=== PATIENT | female | born 1960 | race Hispanic/Latino ===

== ENCOUNTER 2021-03-03 05:40 | Day surgery (SDC) | payer BC ==
[~2021-03-03] VITALS: Ht 167.6 cm; Wt 81.8 kg
[~2021-03-03 05:40] MED LIST: ESTRADIOL0.5 MG PO; LEVOTHYROXINE25 MC1 PO; OMEPRAZOLE20 M1 PO
[2021-03-03] MEDS ORDERED: CELECOXIB200 MG PO (08:00)
[2021-03-03] MEDS ORDERED: OXYCODONE HCL5 MG PO (08:01)
--- NOTE | 2021-03-06 07:15 | OR ---
[facility] [address], [place] [address] Signed DATE OF OPERATION: 03/03/2021 SURGEON: Robert Gonzales MD PREOPERATIVE DIAGNOSIS: Rotator cuff tear, left shoulder. POSTOPERATIVE DIAGNOSIS: Rotator cuff tear, left shoulder. PROCEDURE PERFORMED: Left shoulder arthroscopy with rotator cuff repair. SPOOL CARRIER: None. ANESTHESIA: General. BLOOD LOSS: Minimal. IMPLANTS: 4.75 SwiveLock x1. BRIEF HISTORY: Lisa is a 60-year-old female with progressive worsening of pain in her shoulder with some weakness. MRI was consistent with rotator cuff tear. Risks and benefits of operative treatment discussed with her and she elected to proceed. DESCRIPTION OF PROCEDURE: Once consent was obtained, she was taken to the operating room. After adequate anesthesia, she was placed in a beach chair position. All downside pressure points were well padded. The left shoulder was prepped and draped in a standard sterile fashion. The shoulder was injected with 0.25% Marcaine with epinephrine as was the subacromial space. Standard posterior portal was made and the scope was introduced in the shoulder. ARTHROSCOPIC FINDINGS: The glenohumeral surfaces were intact biceps. Biceps anchor and labrum were intact. There was moderate synovitis superior laterally as well as anteriorly. The Electronically Signed By: ROBERT GONZALES MD 03/06/21 0715 PATIENT NAME: LISA FARNSWORTH OPERATIVE REPORT DATE OF : 56 REPORT #: [id number] PHYSICIAN: ROBERT GONZALES MD PCP: GINA DUMONT REPORT IS CONFIDENTIAL AND NOT TO BE RELEASED WITHOUT AUTHORIZATION [facility] [address], [place] [address] Signed subscapularis was intact. There was a near full-thickness rotator cuff tear noted just posterior to the biceps that measured about 1 cm. Subacromial space showed marked thickening and bursitis. There was fair amount of injection of the rotator cuff tendon just posterior to the tear. The acromion was type 2 to type 3. DESCRIPTION OF OPERATION: Diagnostic arthroscopy was undertaken as noted above. The scope was then withdrawn, placed in subacromial space and lateral portal was established. The bursa was removed in total. An anterior acromioplasty was then undertaken. Once this was accomplished, the tear was debrided and inspected. It was felt to be a repairable tear. A FiberTape suture was then placed in inverted mattress configuration in the tear and using a 475 anchor, we reduced it to tuberosity after debriding the tuberosity down to bleeding bony surface. The SwiveLock was then deployed and screwed into position with excellent adhesion of the tendon to the bone. The shoulder was taken through range of motion and found to be good. The debris was then evacuated and the scope was withdrawn. Portals were closed with 3-0 nylon, dressed with Allevyn and OpSite. The patient was taken to the recovery room in satisfactory condition. All sponge, needle, and instrument counts were correct. Robert Gonzales MD BA/ERIK /[id number] Copies: ~ Electronically Signed By: ROBERT GONZALES MD 03/06/21 0715 PATIENT NAME: LISA FARNSWORTH iNall OPERATIVE REPORT DATE OF : 56 REPORT #: [id number] PHYSICIAN: ROBERT GONZALES MD PCP: GINA DUMONT REPORT IS CONFIDENTIAL AND NOT TO BE RELEASED WITHOUT AUTHORIZATION
== END 2021-03-03 09:45 | disposition home or self-care (01) ==
LOC: DS 05:40
PROVIDERS: ATTEND Specialist
PROC: 0LQ24ZZ Repair Left Shoulder Tendon, Percutaneous Endoscopic Approach (ICD-10-PCS; principal; 2021-03-03 06:45)
DX: M75.102 Unspecified rotator cuff tear or rupture of left shoulder, not specified as traumatic (principal)
CPT/HCPCS: 00450; 64415; 76942; C1713; J0690; J1100; J1885; J2001; J2250; J2405; J2704; J2795; J7121; U0003